=== PATIENT | female | born 1990 | race Caucasian/White ===

== ENCOUNTER 2019-10-07 10:47 | Emergency (ER) | payer OTHER ==
[2019-10-07] MEDS ORDERED: cefTRIAXone\\ROCEPHIN 1 GM VIAL ONE (12:45)
[2019-10-07] MEDS ORDERED: Lidocaine 1% 20 ML MDV ONE (12:45)
== END 2019-10-07 13:16 | disposition home or self-care (01) ==
LOC: MADERS 10:47
DX: O99.513 Diseases of the respiratory system complicating pregnancy, third trimester (principal); J20.9 Acute bronchitis, unspecified; Z3A.34 34 weeks gestation of pregnancy
CPT/HCPCS: 87804; 96372; J0696; J2001; J7620

== ENCOUNTER 2022-06-24 11:14 | Outpatient (CLI) | payer OTHER ==
[2022-06-24 11:45] LABS: #Basophils 0.1 thou/uL (0.0-0.2); #Eosinphils 0.4 thou/uL (0.0-0.7); #Lymphocytes 3.3 thou/uL (1.20-3.40); #Monocytes 0.4 thou/uL (0.11-0.59); #Neutrophils 5.4 thou/uL (1.40-6.50); %Basophils 0.6 % (0.0-1.0); %Eosinophils 4.1 % (0.0-10.0); %Lymphocytes 34.3 % (21.0-51.0); %Monocytes 4.6 % (0.0-10.0); %Neutrophils 56.4 % (42.0-75.0); Mean Corpuscular HGB CONC 31.6 g/dL (32.0-36.0); Mean Corpuscular Volume 88.5 fL (78.0-98.0); Mean Platelet Volume 10.3 fL (7.4-10.4); Platelet Count 238 thou/uL (130-400); RBC Distribution Width 11.7 % (11.5-14.5); Red Blood Cell (RBC) Count 4.99 mill/uL (4.20-5.40); White Blood Cell (WBC) Count 9.6 thou/uL (4.8-10.8)
[2022-06-24 11:59] LABS: Chloride 106 mmol/L (98-107); Potassium 4.3 mmol/L (3.5-5.1); Sodium 139 mmol/L (136-145); Triglycerides 133 mg/dL (Less than 150)
[2022-06-24 12:14] LABS: ALT (SGPT) 82 U/L (8-55); AST (SGOT) 59 U/L (5-34); Alkaline Phosphatase 102 U/L (40-110); BUN (Urea Nitrogen) 11 mg/dL (7.0-18.7); Bilirubin, Total 0.5 mg/dL (0.2-1.2); Calc. Creatinine Clearance 0 mL/min (70-130); Calcium 9.4 mg/dL (7.8-10.44); Carbon Dioxide 26 mmol/L (22-29); Cardiac Risk 5.5 (Less than 4.5); Cholesterol 204 mg/dl (< 200 Desired); Estimated GFR 114; Globulin 2.5 g/dL (2.4-3.5); Glucose 117 mg/dL (70-105); HDL Cholesterol 37 mg/dL (>60 Neg Risk); Protein, Total 6.5 g/dL (6.0-8.3)
[2022-06-24 12:21] LABS: Anion Gap 12 mmol/L (10-20)
[2022-06-24 12:37] LABS: LDL Cholesterol, Calculated 140 mg/dL
[2022-06-24 12:48] LABS: Thyroid Stimulating Hormone 3.1445 uIU/mL (0.35-4.94)
[2022-06-24 16:45] LABS: Hemoglobin A1c 5.9 % (4.0-6.0)
[2022-06-24 17:39] LABS: HIV (1/2) Antibody/Antigen Non-Reactive (NonReactive); HIV 1/2 INDEX 0.14 S/CO (<1.00); Vitamin D, 25 Hydroxy 21.5 ng/ml (> 30.0)
== END 2022-06-24 11:15 | disposition home or self-care (01) ==
LOC: MADLABBHPM 11:14 → MADLAB 11:15
PROVIDERS: ATTEND Family Medicine
DX: Z00.00 Encounter for general adult medical examination without abnormal findings (principal)
CPT/HCPCS: 80053; 80061; 82306; 83036; 84443; 85025; 87389

== ENCOUNTER 2022-09-15 11:24 | Outpatient (CLI) | payer OTHER | END 2022-09-15 11:25 | disposition home or self-care (01) | LOC: MADRAD 11:24 | PROVIDERS: ATTEND Family Medicine | DX: M25.562 Pain in left knee (principal) ==

== ENCOUNTER 2022-10-23 16:13 | Emergency (ER) | payer OTHER ==
[2022-10-23] MEDS ORDERED: Dexamethasone 10 MG/ML VIAL ONE (17:03)
== END 2022-10-23 17:25 | disposition home or self-care (01) ==
LOC: MADERS 16:13
DX: J06.9 Acute upper respiratory infection, unspecified (principal); Z20.822 Contact with and (suspected) exposure to COVID-19
CPT/HCPCS: 87081; 87430; 87804; 96372; 99283; J1100; U0003; U0005